=== PATIENT | female | born 1965 | race Caucasian/White ===

== ENCOUNTER 2016-12-30 10:43 | Emergency (ER) | payer OTHER ==
[~2016-12-30] VITALS: Ht 172.7 cm; Wt 145.4 kg
[~2016-12-30 10:43] MED LIST: ABILIFY5 MG PO; ADVAIR 500/501 DISK IH; ALLEGRA30 MG PO; Advair HFA 230/21 IH; BACTRIM DS PO; CIPRO500 M1 PO; CIPRO500 MG PO; CLINDAMYCIN HC300 MG PO; CRESTOR10 MG PO; CYMBALTA30 MG PO; CYMBALTA60 MG PO; Cymbalta PO; DELTASONE20 M1 PO; DETROL LA4 MG PO; DICLOFENAC SODI25 MG PO; DULOXETINE HCL60 MG PO; FLONASE ALLERG9.9 ML BOTH NARES; FLONASE16 G1 BOTH NARES; FLOVENT DISKUS1 DIS2 IH; Flomax PO; HYDROCODON-ACE1 EAC7 PO; IMITREX100 MG PO; LASIX20 MG PO; MONTELUKAST SOD10 MG PO; MOTRIN800 MG PO; NAPROXEN500 MG PO; NOHOMEMEDS; PANTOPRAZOLE SO40 MG PO; PENNSAID150 ML TP; PERCOCET 5/31 TABLET PO; PREDNISONE20 MG PO; PRISTIQ50 MG PO; PROVENTIL,2.5 MG/3 M IH; Pristiq PO; SIMVASTATIN10 MG PO; SPIRIVA1 INHALATI IH; SUMATRIPTAN SU100 MG PO; SYMBICORT60 INHALAT IH; TRAMADOL HCL50 MG PO; VENLAFAXINE HC100 MG PO; VENTOLIN HFA18 GM IH; VICODIN,LORT1 TABLET PO; ZOFRAN4 MG PO
[2016-12-30 11:32] LABS: HEMATOCRIT 46.9 % (36.0-46.0); MCH 28.9 PG (29.0-34.0); MCHC 32.4 G/DL (30.0-36.0); MCV 89.2 FL (83-99); PLATELET COUNT 297 K/uL (156-360); RBC DIS.WIDTH-CV 12.9 % (11.8-14.6); RBC DIS.WIDTH-SD 42.2 % (39-53); RED BLOOD COUNT 5.26 M/uL (3.80-5.20); WHITE BLOOD COUNT 6.6 K/uL (4.1-10.2)
[2016-12-30 11:41] LABS: CHLORIDE 107 mEq/L (99-109); POTASSIUM 4.3 mEq/L (3.7-5.4); SODIUM 141 mEq/L (136-147)
[2016-12-30 11:44] LABS: GLUCOSE 105 mg/dL (70-99)
[2016-12-30 11:45] LABS: ANION GAP 10 MEQ/L (2-14)
[2016-12-30 11:46] LABS: TOTAL BILIRUBIN 0.4 mg/dL (0.0-1.0)
[2016-12-30 11:47] LABS: ALKALINE PHOSPHATASE 114 IU/L (3-129); GFR ESTIMATE (CALCULATED) > 59 mL/min/
[2016-12-30 11:49] LABS: UREA NITROGEN (BUN) 10 mg/dL (9-23)
[2016-12-30 11:56] LABS: QUANTITATIVE HCG < 4.0 MIU/ML
[2016-12-30 11:58] LABS: ADD MIUA? YES; BILIRUBIN NEGATIVE; BLOOD NEGATIVE; COLOR YELLOW ((YELLOW)); GLUCOSE (STRIP) NEGATIVE; KETONES NEGATIVE; LEUKOCYTES NEGATIVE; NITRITE NEGATIVE; PROTEIN (STRIP) NEGATIVE; SPECIFIC GRAVITY 1.017 (1.000-1.030); UROBILINOGEN 0.2 MG/DL (0.2-1.0)
[2016-12-30 12:33] LABS: BACTERIA RARE /HPF; CALCIUM OXALATE CRYSTALS 1+ /HPF; EPITHELIAL CELLS 2+ /HPF; MUCUS TRACE /LPF; RED BLOOD CELLS 0-5 /HPF (0-5); UCUL ADDED? NO; WHITE BLOOD CELLS 0-5 /HPF (0-5)
[2016-12-30] MEDS ORDERED: BENTYL20 MG PO (14:17)
[2016-12-30] MEDS ORDERED: ANTIVERT25 MG PO (14:17)
[2016-12-30] MEDS ORDERED: CITRATE OF MAG296 ML PO (14:17)
[2016-12-30 15:01] VITALS: BP 96/86
[2016-12-30] MEDS ORDERED: UNABLE TO OBTAIN (15:02)
== END 2016-12-30 15:12 | disposition home or self-care (01) ==
LOC: EXP 10:43 → EME 10:43 → EXP 15:12
DX: H81.10 Benign paroxysmal vertigo, unspecified ear (principal); R10.31 Right lower quadrant pain; K21.9 Gastro-esophageal reflux disease without esophagitis; J45.909 Unspecified asthma, uncomplicated; E78.5 Hyperlipidemia, unspecified; Z87.442 Personal history of urinary calculi
CPT/HCPCS: 70450; 74176; 80053; 81003; 84702; 85027; 99281; 99285; J2270; J2405; J7030

== ENCOUNTER 2017-08-21 11:43 | Emergency (ER) | payer OTHER ==
[~2017-08-21] VITALS: Ht 172.7 cm; Wt 147.1 kg
[~2017-08-21 11:43] MED LIST changes: +ANTIVERT25 MG PO; +BENTYL20 MG PO; +CITRATE OF MAG296 ML PO; +UNABLE TO OBTAIN
[2017-08-21 12:36] LABS: HEMATOCRIT 43.9 % (36.0-46.0); HEMOGLOBIN 14.7 G/DL (11.9-15.5); MCH 29.7 PG (29.0-34.0); MCHC 33.5 G/DL (30.0-36.0); MCV 88.7 FL (83-99); PLATELET COUNT 284 K/uL (156-360); RBC DIS.WIDTH-CV 12.7 % (11.8-14.6); RBC DIS.WIDTH-SD 41.5 % (39-53); RED BLOOD COUNT 4.95 M/uL (3.80-5.20); WHITE BLOOD COUNT 6.5 K/uL (4.1-10.2)
[2017-08-21 12:44] LABS: ALBUMIN 3.8 g/dL (3.2-4.8); CHLORIDE 108 mEq/L (99-109); POTASSIUM 4.1 mEq/L (3.7-5.4); SODIUM 140 mEq/L (136-147)
[2017-08-21 12:47] LABS: GLUCOSE 100 mg/dL (70-99); TOTAL PROTEIN 6.7 g/dL (6.4-8.3)
[2017-08-21 12:48] LABS: TOTAL BILIRUBIN 0.5 mg/dL (0.0-1.0)
[2017-08-21 12:50] LABS: ALKALINE PHOSPHATASE 109 IU/L (3-129); CREATININE 0.8 mg/dL (0.6-1.3); GFR ESTIMATE (CALCULATED) > 59 mL/min/
[2017-08-21 12:51] LABS: UREA NITROGEN (BUN) 11 mg/dL (9-23)
[2017-08-21 12:52] LABS: AST (GOT) 15 IU/L (2-34)
[2017-08-21 12:53] LABS: ALT (GPT) 21 IU/L (3-49)
[2017-08-21 12:59] LABS: QUANTITATIVE HCG < 4.0 MIU/ML
[2017-08-21] MEDS ORDERED: VENLAFAXINE HC150 M1 PO (13:24)
[2017-08-21 13:26] LABS: APPEARANCE CLOUDY ((CLEAR)); BILIRUBIN NEGATIVE; BLOOD NEGATIVE; COLOR YELLOW ((YELLOW)); GLUCOSE (STRIP) NEGATIVE; KETONES NEGATIVE; LEUKOCYTES NEGATIVE; NITRITE NEGATIVE; PROTEIN (STRIP) NEGATIVE; SPECIFIC GRAVITY 1.018 (1.000-1.030)
[2017-08-21 13:34] LABS: BACTERIA RARE /HPF; EPITHELIAL CELLS 4+ /HPF; HYALINE CASTS 0-5 /LPF; MUCUS TRACE /LPF; RED BLOOD CELLS 0-5 /HPF (0-5); UCUL ADDED? NO; WHITE BLOOD CELLS 0-5 /HPF (0-5)
[2017-08-21 14:17] LABS: LIPASE 4 U/L (1.0-51.0)
[2017-08-21] MEDS ORDERED: BENTYL10 MG PO (18:26)
[2017-08-21] MEDS ORDERED: ZOFRAN4 MG SL (18:26)
[2017-08-21 18:36] VITALS: BP 110/63
== END 2017-08-21 18:39 | disposition home or self-care (01) ==
LOC: EME 11:43
DX: R10.31 Right lower quadrant pain (principal); K21.9 Gastro-esophageal reflux disease without esophagitis; J45.909 Unspecified asthma, uncomplicated; E78.5 Hyperlipidemia, unspecified; F41.9 Anxiety disorder, unspecified; F32.9 Major depressive disorder, single episode, unspecified; Z87.442 Personal history of urinary calculi; Z90.49 Acquired absence of other specified parts of digestive tract; Z90.710 Acquired absence of both cervix and uterus; Z91.040 Latex allergy status; Z88.2 Allergy status to sulfonamides
CPT/HCPCS: 74177; 76856; 80053; 81003; 83690; 84702; 85027; 93975; 99281; 99285; J2405; J3010; J7030